=== PATIENT | female | born 1990 ===

== ENCOUNTER 2022-01-13 09:23 | Outpatient (CLI) | payer OTHER | END 2022-01-13 12:17 | disposition home or self-care (01) | LOC: PRENATAL 09:23 | PROVIDERS: ATTEND Obstetrics & Gynecology Maternal & Fetal Medicine | DX: O35.9XX0 Maternal care for (suspected) fetal abnormality and damage, unspecified, not applicable or unspecified (principal); O35.3XX0 Maternal care for (suspected) damage to fetus from viral disease in mother, not applicable or unspecified; O26.879 Cervical shortening, unspecified trimester; O44.00 Complete placenta previa NOS or without hemorrhage, unspecified trimester; Z3A.20 20 weeks gestation of pregnancy ==

== ENCOUNTER 2022-04-09 09:24 | Outpatient (CLI) | payer OTHER | END 2022-04-09 11:35 | disposition home or self-care (01) | LOC: PRENATAL 09:24 | PROVIDERS: ATTEND Obstetrics & Gynecology Maternal & Fetal Medicine | DX: O26.849 Uterine size-date discrepancy, unspecified trimester (principal); Z3A.32 32 weeks gestation of pregnancy ==

== ENCOUNTER 2022-05-15 06:53 | Inpatient (IN) | payer OTHER ==
[~2022-05-15] VITALS: Ht 152.4 cm; Wt 64.0 kg
[2022-05-15] MEDS ORDERED: PRENATAL + DHA1 EAC1 PO (09:33)
== END 2022-05-17 12:43 | disposition home or self-care (01) | DRG 807 ==
LOC: LDR 06:53 → OB/GYN 06:53
PROVIDERS: ADMIT Obstetrics & Gynecology; ATTEND Obstetrics & Gynecology
PROC: 10E0XZZ Delivery of Products of Conception, External Approach (ICD-10-PCS; principal; 2022-05-15)
PROC: 4A1HXCZ Monitoring of Products of Conception, Cardiac Rate, External Approach (ICD-10-PCS; 2022-05-15)
DX: O80 Encounter for full-term uncomplicated delivery (principal); Z37.0 Single live birth; Z3A.37 37 weeks gestation of pregnancy; Z20.822 Contact with and (suspected) exposure to COVID-19